=== PATIENT | female | born 1945 | race Caucasian/White ===

== ENCOUNTER → 2016-10-04 | Outpatient (CLI) | payer MEDICARE, BC ==
[~2016-10-04] MED LIST: ALPRAZOLAM PO; ASPIRIN81 M2 PO; BENICAR HCT 20-1 TA1 PO; CALCIUM + D 6001 TA1 PO; COREG12.5 MG PO; CRESTOR5 MG PO; MYSOLINE50 MG; NAPROSYN375 MG PO
--- NOTE | ~2016-10-04 | MY29 ---
[facility] A Service of [facility] & [facility] RADIOLOGY TEXT RESULTS PATIENT: DENNIS ROYAL LOCATION: [facility] : 47 UNIT #: [id number] AGE: [address]: Lyric Russell MD SEX: F ORDER DR: [id number] [facility] [address] [place], [place] [address] [id number] O MR#: [id number] Acc #: [id number] NAME: DENNIS ROYAL : 1945 SEX: F STUDY DATE/TIME: 10/04/2016 11:14 UNIT: [facility] ROOM: STUDY DESCRIPTION: MY STEPHANIE SCREENING W/ CAD BILAT Attending Physician: Lyric uRssell M.D. Referring Physician: Lyric Russell M.D. Ordering Physician: Lyric Russell M.D. Primary Care Physician: Lyric Russell M.D. MEDICAL IMAGING REPORT This report is preliminary unless electronic signature is present EXAM Digital screening mammogram 10/04/2016 HISTORY 70-year-old woman. Positive family history, mother age 72. Annual screen. COMPARISON Mammograms date to 02/26/2009 with most recent 09/23/2015. FINDINGS Digital imaging of each breast was completed utilizing screening protocol. Review includes FDA-approved CAD device. Breast parenchyma is heterogeneously dense with scattered benign calcifications in each breast. Heterogeneous parenchymal dominance inner hemisphere right breast is stable. There is no interval occurring mass. There are no suspicious microcalcifications and no suspicious architectural deformity. IMPRESSION Benign mammogram. Annual screening recommended. Patient's over the age of 40 are entered into a reminder system with target due date for the next mammogram. BIRADS: 2 Benign findings Dictated by... Dayron Pacheco M.D. THIS IS AN ELECTRONICALLY VERIFIED REPORT [facility] A Service [facility] & [facility] RADIOLOGY TEXT RESULTS PATIENT: DENNIS ROYAL LOCATION: [facility] : 47 UNIT #: [id number] AGE: [address]: Lyric Russell MD SEX: F ORDER DR: Dayron Pacheco M.D. at 10/04/2016 2:18 PM MIKE/malissa TD: 10/04/2016 13:41 JOB #: [id number] MEDICAL IMAGING REPORT Page 1 of 1 COPY
== END | disposition home or self-care (01) ==
LOC: CWCC 10:38
DX: Z12.31 Encounter for screening mammogram for malignant neoplasm of breast (principal); Z80.3 Family history of malignant neoplasm of breast
CPT/HCPCS: G0202